=== PATIENT | female | born 1990 | race Caucasian/White ===

== ENCOUNTER → 2018-12-07 12:14 | Outpatient (CLI) | payer OTHER, SELFPAY ==
--- NOTE | 2018-12-07 | DI.MRI.S_ITS ---
PROCEDURE: MR LUMBAR SPINE WO CON INDICATIONS: low back pain TECHNIQUE: Noncontrast sagittal T1 spin echo and T2 fast echo, sagittal STIR, axial T1 and T2 fast spin echo through the lumbar spine. In cases with scoliosis, additional coronal T2 fast spin echo may be performed. COMPARISON: [facility] [place], [place], XR LUMBAR SPINE WITH OLBIQUES PLUS FLEXION EXTENSION, 11/25/2018, 8:54. FINDINGS: Image quality: Excellent. Alignment and Curvature: There is normal bony alignment. Bone Marrow: Marrow is of normal overall signal. No acute vertebral body compression fractures. Spinal Cord: Conus medullaris terminates at the L1-L2 level. Visualized cord demonstrates normal signal and size. Paraspinous Soft Tissues: No paravertebral masses. L1-L2: Normal appearance. L2-L3: Normal appearance. L3-L4: Normal appearance. L4-L5: Normal appearance. L5-S1: There is a posterior central disc herniation which causes mild effacement of the anterior thecal sac without associated neural foraminal or spinal canal stenosis. There is also associated peripheral T2 hyperintensity involving the herniated portion of the L5-S1 disc consistent with an annular fibrosus fissure. There is mild loss of normal disc T2 signal hyperintensity suggesting mild disc desiccation. IMPRESSION: Mild degenerative disc disease of the L5-S1 disc with associated posterior central disc herniation and posterior annular fibrosus fissure. Dictated by: Heraclio Kwon M.D. on 12/09/2018 at 9:56 Approved by: Heraclio Kwon M.D. on 12/09/2018 at 10:06
== END ==
PROVIDERS: Visit Provider Physical Medicine & Rehabilitation Pain Medicine
DX: M47.817 Spondylosis without myelopathy or radiculopathy, lumbosacral region (principal); M51.27 Other intervertebral disc displacement, lumbosacral region
CPT/HCPCS: 72148